=== PATIENT | female | born 1945 | race Two or more races ===

== ENCOUNTER 2021-12-07 11:15 | Inpatient (IN) | payer OTHER ==
[~2021-12-07] VITALS: Ht 154.9 cm; Wt 77.1 kg
[2021-12-07] MEDS ORDERED: ALTACE10 MG PO (15:25)
[2021-12-07] MEDS ORDERED: TOPROL PO (15:26)
[2021-12-09] MEDS ORDERED: RALOXIFENE HCL60 MG (07:52)
[2021-12-09] MEDS ORDERED: PAROXETINE HCL10 MG (07:52)
[2021-12-09] MEDS ORDERED: METOPROLOL SUC100 MG (07:52)
== END 2021-12-12 13:30 | disposition home or self-care (01) | DRG 734 ==
LOC: SURG 12-08 10:05 → O/R 12-08 10:05 → OB/GYN 12-08 11:15 → SURG 12-09 10:19
PROVIDERS: ADMIT Specialist; ATTEND Specialist
PROC: 07TD0ZZ Resection of Aortic Lymphatic, Open Approach (ICD-10-PCS; 2021-12-08)
PROC: 0UT90ZZ Resection of Uterus, Open Approach (ICD-10-PCS; 2021-12-08)
PROC: 0UT70ZZ Resection of Bilateral Fallopian Tubes, Open Approach (ICD-10-PCS; 2021-12-08)
PROC: 0UT20ZZ Resection of Bilateral Ovaries, Open Approach (ICD-10-PCS; 2021-12-08)
PROC: 0DTU0ZZ Resection of Omentum, Open Approach (ICD-10-PCS; 2021-12-08)
PROC: 3E1M38Z Irrigation of Peritoneal Cavity using Irrigating Substance, Percutaneous Approach (ICD-10-PCS; 2021-12-08)
PROC: 4A033R1 Measurement of Arterial Saturation, Peripheral, Percutaneous Approach (ICD-10-PCS; 2021-12-08)
PROC: 4A12X4Z Monitoring of Cardiac Electrical Activity, External Approach (ICD-10-PCS; 2021-12-08)
PROC: 07TC0ZZ Resection of Pelvis Lymphatic, Open Approach (ICD-10-PCS; principal; 2021-12-08 15:00)
PROC: 5A1935Z Respiratory Ventilation, Less than 24 Consecutive Hours (ICD-10-PCS; 2021-12-09)
PROC: 0BH17EZ Insertion of Endotracheal Airway into Trachea, Via Natural or Artificial Opening (ICD-10-PCS; 2021-12-09)
PROC: 3E0F7GC Introduction of Other Therapeutic Substance into Respiratory Tract, Via Natural or Artificial Opening (ICD-10-PCS; 2021-12-11)
DX: C54.1 Malignant neoplasm of endometrium (principal); J95.821 Acute postprocedural respiratory failure; Z20.822 Contact with and (suspected) exposure to COVID-19; J38.4 Edema of larynx